=== PATIENT | male | born 1990 | race Caucasian/White ===

== ENCOUNTER 2021-02-05 07:11 | Emergency (ER) | payer BC, SELFPAY ==
[2021-02-05 07:21] VITALS: BP 159/115; PULSE 108; RESP 18; TEMP 36.8; O2SAT 98; BMI 38.2
--- NOTE | 2021-02-05 07:41 | ED_ITS ---
HPI - Abdominal Pain General: Chief Complaint: Abdominal Pain Stated Complaint: N/V, flank pain, poss kidney stone Time Seen by Provider: 02/05/21 07:12 Source: patient Mode of arrival: ambulatory Limitations: no limitations History of Present Illness: HPI narrative: Patient is a nice 30-year-old male who presents to ED today with a complaint of left-sided back pain wrapping ar ound to his abdomen that began fairly abruptly this morning. Patient tells me he does have a history of kidney stones and feels like his discomfort is similar to stones he has had previously. He is not complaining of dysuria, frequency/urgency, or hematuria. He feels slightly nauseous but has not had any episodes of emesis. No injury or trauma to his back. No radicular symptoms. No fever/chills. MD elicited complaint: abdominal pain Pertinent past history: kidney stones Onset (ago): hour(s) Pain Consistency: constant Location: LLQ Severity: moderate Pain scale (0-10): 7 Quality: sharp Exacerbating factors: nothing Relieving factors: nothing Associated Symptoms: Reports nausea; Denies change in bowel habits, change in stool character, chills, diarrhea, dysuria, fever(s) and vomiting Review of Systems Const: Denies: fever(s), chills, body aches, fatigue or malaise Card: Denies: chest pain Resp: Denies: dyspnea GI: Reports: abdominal pain and nausea; Denies: vomiting, diarrhea, change in bowel habits or change in stool character : Reports: flank pain (started this AM with flank pain; now wrapping around to LLQ); Denies: difficulty urinating, dysuria, urinary frequency, urinary urgency or urinary hesitancy Musc: Reports: back pain (L low back wrapping around to abdomen); Denies: neck pain, extremity pain, extremity swelling, joint pain or joint swelling Physical Exam Const: COMMON NORMALS: no acute distress, patient oriented x3, no limitations and alert NUTRITIONAL APPEARANCE: obese ORIENTATION/CONSCIOUSNESS: Yes awake, Yes oriented to person, Yes oriented to place and Yes oriented to time HENMT: COMMON NORMALS: normocephalic and atraumatic HEAD & SCALP: normocephalic and atraumatic Resp: COMMON NORMALS: normal respiratory effort and clear to auscultation bilaterally AUSCULTATION: clear to auscultation bilaterally Cardio: COMMON NORMALS: regular rhythm RATE: tachycardic (mild) RHYTHM: regular rhythm GI: COMMON NORMALS: Normal to inspection, nondistended, normoactive bowel sounds present, Soft to palpation, No hepatosplenomegaly present and no masses PALPATION: Yes Soft to palpation, Yes Tenderness to palpation present (GI) (L lateral abdomen and into LLQ) and Yes No hepatosplenomegaly present OTHER: patient states pain began this AM with flank pain (no CVA tenderness now) and moved down into L lower back and now wrapping around into L side of abdomen : COMMON NORMALS: Yes no CVA tenderness BLADDER/KIDNEY EXAM: Yes no CVA tenderness Back/Pelvis: COMMON NORMALS: no CVA tenderness, thoracic and lumbar spine normal to inspection, no thoracic nor lumbar tenderness, thoraco-lumbar ROM normal and straight leg raise negative bilaterally PELVIS: Yes buttocks normal Neuro: COMMON NORMALS: patient oriented x3 SENSORIUM/ORIENTATION: Yes alert, Yes oriented to person, Yes oriented to place and Yes oriented to time Skin: COMMON NORMALS: no rashes or lesions noted GENERAL SKIN EXAM: no rashes or lesions noted Course Vital Signs: Vital signs: Vital Signs Temperature 98.3 F 02/05/21 07:21 Pulse Rate 113 H 02/05/21 08:19 Respiratory Rate 18 02/05/21 07:21 Blood Pressure 148/97 02/05/21 08:19 Pulse Oximetry 98 02/05/21 08:19 MDM - Abdominal Pain MDM Narrative: Medical decision making narrative: Patient found to have a 4.6 mm left distal ureter/UPJ calculus. Pain was easily controlled here. UA shows no infection. We will send him home with pain meds/nausea meds/Flomax and a urine strainer and have him follow-up with urology. Return to ED precautions given. Lab Data: Labs: Lab Results 02/05/21 02/05/21 02/05/21 08:05 08:12 08:12 WBC 11.6 10^3/uL H 10 ^3/uL (4.0-10.0) RBC 5.62 10^6/uL H 10 ^6/uL (4.1-5.3) Hgb 16.1 g/dL g/dL (11.7-16.6) Hct 50.7 % % (42.0-52.0) MCV 90.2 fl fl (80-94) MCH 28.6 pg pg (28.0-34.0) MCHC 31.8 g/dL g/dL (30.0-36.0) RDW 12.3 % % (12.1-15.1) Plt Count 396 10^3/cmm 10^3 /cmm (130-400) MPV 9.3 fL fL (7.4-10.4) Neut % (Auto) 78.0 % % Lymph % (Auto) 13.2 % % Crockett % (Auto) 7.1 % % Eos % (Auto) 0.2 % % Baso % (Auto) 0.6 % % Neut # (Auto) 9.02 10^3/uL H 10 ^3/uL (1.8-7.7) Lymph # (Auto) 1.5 10^3/uL 10^3/ uL (0.8-4.8) Crockett # (Auto) 0.8 10^3/uL 10^3/ uL (0.2-0.9) Eos # (Auto) 0.0 10^3/uL 10^3/ uL (0.0-0.8) Baso # (Auto) 0.1 10^3/uL 10^3/ uL (0.0-0.1) Nucleated RBC % (a uto) 0 % % Nucleated RBCs # 0.0 /100WBC /100W BC Sodium 136 mmol/L mmol/L (136-145) Potassium 4.2 mmol/L mmol/L (3.5-5.1) Chloride 104 mmol/L mmol/L (98-107) Carbon Dioxide 22 mmol/L mmol/L (22-29) Anion Gap 14.2 (5-19) BUN 12 mg/dL mg/dL (6-20) Creatinine 0.8 mg/dL mg/dL (0.7-1.2) GFR Calculation 114.3 mL/min mL/m in (90-130) Glucose 115 mg/dL mg/dL (65-115) Calculated Osmolal ity 283 mOsm/kg L mOs m/kg (285-295) Calcium 9.7 mg/dL mg/dL (8.5-10.5) Total Bilirubin 0.5 mg/dL mg/dL (0.15-1.2) AST 37 U/L U/L (0-40) ALT 84 U/L H U/L (0-41) Alkaline Phosphata se 99 IU/L IU/L (40-130) Total Protein 7.8 g/dL g/dL (6.6-8.7) Albumin 4.3 g/dL g/dL (3.5-5.2) Globulin 3.5 g/dL g/dL (1.3-4.6) Urine Color Brown (Yellow) Urine Appearance Cloudy (CLEAR) Urine pH 5 (5-7) Ur Specific Gravit y 1.025 (1.005-1.030) Urine Protein 1+ H (Negative) Urine Glucose (UA) Norm (Normal) Urine Ketones Negative (Negative) Urine Blood 3+ H (Negative) Urine Nitrate Negative (Negative) Urine Bilirubin 1+ H (Negative) Urine Urobilinogen Norm mg/dL mg/dL (Negative) Ur Leukocyte Purvi ase Negative (Negative) Urine RBC >100 /hpf H /hpf (0-2) Urine WBC None /hpf /hpf (0-5) Ur Squamous Epith Cells 0-4 /hpf H /hpf (0-5) Amorphous Sediment Not Reportable Urine Bacteria Trace /hpf /hpf (NONE) Imaging Data ^: CT Abd/Pel: Radiologist's impression: [address] [address] [address] Scan Report Signed Patient: Indio Bolden Unit #: [id number] : 1990 Age/Sex: 30 / M ADM Date: 02/05/21 Loc: ER Room/Bed: Attending Dr: Ordering Provider/Ordering MD: Leelee Mueller Date of Service: 02/05/21 Procedure(s): CT kidney stone 03228 Accession Number(s): [id number] Report Number: [id number] WS: [id number] CT ABDOMEN AND PELVIS NONCONTRAST HISTORY: L flank/abdominal pain; hx of stones TECHNIQUE: Imaging performed through the abdomen and pelvis. Coronal and sagittal reformats are submitted. All CT scans at [facility] use at least one of these dose optimization t echniques: automated exposure control; mA and/or kV adjustment per patient size (includes targeted exams where dose is matched to clinical indication); or iterative reconstruction. DLP: 2359.08 mGy.cm COMPARISON: None available. Lower thorax: Lung bases are clear. Visualized heart is normal. No hiatal hernia. Liver: Liver is normal size. Diffuse low attenuation throughout the liver from hepatic steatosis. Areas of sparing adjacent to the gallbladder. Gallbladder: Normal gallbladder. Pancreas: Normal size and attenuation. Normal pancreatic duct. No pancreatitis or mass. Spleen: Normal. Adrenal glands: Normal. No mass. Right kidney: Normal size RIGHT kidney. No perinephric stranding. There are 2 calcifications in the RIGHT renal pelvis which are nonobstructing. These calcifications measure 2 mm. Left kidney: Very minimal perinephric stranding as compared to the RIGHT kidney. Very slight dilatation of the LEFT renal pelvis. 4.6 mm calcification at the LEFT UP junction. The distal ureter is normal size. There are few additional nonobstructing very tiny calcifications in the renal pelvis. Aorta: Normal abdominal aorta, no aneurysm or atherosclerosis. No free fluid, intraperitoneal air or significant lymphadenopathy. GI tract: Normal appendix. No GI tract obstruction or diverticulosis. Abdominal wall: Negative. No hernia. Pelvis: Minimally distended urinary bladder. No free fluid in the pelvis. There are several small phleboliths in the pelvis. No adenopathy. Osseous structures: Mild disc space narrowing and vertebral body osteophytes at L5-S1. CT/CT kidney stone [id number] IMPRESSION: 1. Mild LEFT hydronephrosis secondary to 4.6 mm calcification at the UPJ. 2. Additional very tiny nonobstructing renal calcifications bilaterally. 3. Normal appendix. Dictated By: Dipti Ramsey DO Signed By: Dipti Ramsey DO Signed Date/Time: 02/05/21835 DD/ 8 Discharge Plan Discharge Patient Disposition: Home Clinical Impression: Calculus of distal left ureter Condition: Stable Prescriptions: New hydrocodone-acetaminophen 5-325 mg tablet 1 tab PO Q4H PRN (Reason: pain) Qty: 20 RF: 0 Zofran 4 mg tablet 4 mg PO Q6H PRN (Reason: nausea and vomiting) Qty: 14 RF: 0 Flomax 0.4 mg capsule 0.4 mg PO DAILY Qty: 10 RF: 0 Discharge Orders: Discharge ED (Routine); Ordered 02/05/21 Ordered By: Leelee Mueller Referrals: Basim Foley MD [Physician] - Patient Instructions: Kidney Stones (ED), Opioid Safety Activity Restrictions/Additional Instructions: [facility] is committed to fighting the nationwide opiate epidemic. We are providing ALL patients with information regarding opiate safety. If you received opiate pain medication during your stay or if you received a prescription for opiate pain medication-please review this handout. If not, you may disregard. Thank you. You may use pain/nausea medications as needed. Strain your urine as instructed and bring stone with you to follow-up urology appointment if you pass it. Case management should contact you shortly to set you up with this follow-up appointment. You need to return to the emergency department for worsening or uncontrollable pain, repetitive episodes of vomiting, fevers greater than 100.4, inability to urinate, or any other concerns you may have. I hope you begin to feel better soon. Coding Level of Care Code ED Record Producer for [facility] Exam Comprehensive
--- NOTE | 2021-02-05 08:01 | CT_ITS ---
WS: [id number] CT ABDOMEN AND PELVIS NONCONTRAST HISTORY: L flank/abdominal pain; hx of stones TECHNIQUE: Imaging performed through the abdomen and pelvis. Coronal and sagittal reformats are submi tted. All CT scans at [facility] use at least one of these dose optimization techniques: auto mated exposure control; mA and/or kV adjustment per patient size (includes targeted exams where dose is matched to clinical indication); or iterative reconstruction. DLP: 2359.08 mGy.cm COMPARISON: None available. Lower thorax: Lung bases are clear. Visualized heart is normal. No hiatal hernia. Liver: Liver is normal size. Diffuse low attenuation throughout the liver from hepatic steatosis. Are as of sparing adjacent to the gallbladder. Gallbladder: Normal gallbladder. Pancreas: Normal size and attenuation. Normal pancreatic duct. No pancreatitis or mass. Spleen: Normal. Adrenal glands: Normal. No mass. Right kidney: Normal size RIGHT kidney. No perinephric stranding. There are 2 calcifications in the R IGHT renal pelvis which are nonobstructing. These calcifications measure 2 mm. Left kidney: Very minimal perinephric stranding as compared to the RIGHT kidney. Very slight dilatati on of the LEFT renal pelvis. 4.6 mm calcification at the LEFT UP junction. The distal ureter is jeanie l size. There are few additional nonobstructing very tiny calcifications in the renal pelvis. Aorta: Normal abdominal aorta, no aneurysm or atherosclerosis. No free fluid, intraperitoneal air or significant lymphadenopathy. GI tract: Normal appendix. No GI tract obstruction or diverticulosis. Abdominal wall: Negative. No hernia. Pelvis: Minimally distended urinary bladder. No free fluid in the pelvis. There are several small phl eboliths in the pelvis. No adenopathy. Osseous structures: Mild disc space narrowing and vertebral body osteophytes at L5-S1. CT/CT kidney stone [id number] IMPRESSION: 1. Mild LEFT hydronephrosis secondary to 4.6 mm calcification at the UPJ. 2. Additional very tiny nonobstructing renal calcifications bilaterally. 3. Normal appendix.
[2021-02-05] MEDS: morphine 4 mg/mL SDV 1 mL IVP (08:11)
[2021-02-05] MEDS: ondansetron 2 mg/ML SDV 2 mL 4 MG IVP (08:11)
[2021-02-05] MEDS: sodium chloride 0.9% 1,000 ML 999 ML IV (08:12)
[2021-02-05 08:19] VITALS: BP 148/97; PULSE 113; O2SAT 98
[2021-02-05 08:36] LABS: Basophils # 0.1 10^3/uL (0.0-0.1); Basophils % 0.6 %; Eosinophils % 0.2 %; Hematocrit 50.7 % (42.0-52.0); Hemoglobin 16.1 g/dL (11.7-16.6); Lymphocytes # 1.5 10^3/uL (0.8-4.8); Lymphocytes % 13.2 %; Mean Corpuscular HGB Conc 31.8 g/dL (30.0-36.0); Mean Corpuscular Hemoglobin 28.6 pg (28.0-34.0); Mean Corpuscular Volume 90.2 fl (80-94); Mean Platelet Volume 9.3 fL (7.4-10.4); Monocytes # 0.8 10^3/uL (0.2-0.9); Monocytes % 7.1 %; Neutrophils # 9.02 10^3/uL (1.8-7.7); Nucleated Red Blood Cells % 0 %; Platelet Count 396 10^3/cmm (130-400); Red Blood Count 5.62 10^6/uL (4.1-5.3); Red Cell Distribution Width 12.3 % (12.1-15.1); White Blood Count 11.6 10^3/uL (4.0-10.0)
[2021-02-05 08:51] LABS: Alanine Aminotransferase 84 U/L (0-41); Albumin Level 4.3 g/dL (3.5-5.2); Alkaline Phosphatase 99 IU/L (40-130); Anion Gap 14.2 (5-19); Aspartate Amino Transferase 37 U/L (0-40); Blood Urea Nitrogen 12 mg/dL (6-20); Calcium 9.7 mg/dL (8.5-10.5); Carbon Dioxide 22 mmol/L (22-29); Chloride 104 mmol/L (98-107); Globulin 3.5 g/dL (1.3-4.6); Glomerular Filtration Rate 114.3 mL/min (90-130); Glucose 115 mg/dL (65-115); Osmolality Calculated 283 mOsm/kg (285-295); Potassium 4.2 mmol/L (3.5-5.1); Sodium 136 mmol/L (136-145); Total Bilirubin 0.5 mg/dL (0.15-1.2); Total Protein 7.8 g/dL (6.6-8.7)
[2021-02-05] MEDS: ketorolac 30 mg/mL INJ IVP (09:02)
[2021-02-05 09:08] LABS: Add Urine Culture? Yes; Add Urine Microscopic? YES; Bacteria Urine TRACE /hpf; Bilirubin Urine 1+ (Negative); Blood Urine 3+ (Negative); Glucose Urine UA Norm (Normal); Ketones Urine Negative (Negative); Leukocyte Esterase Urine Negative (Negative); Nitrate Urine Negative (Negative); Protein Urine 1+ (Negative); RBC Urine >100 /hpf (0-2); Specific Gravity, Urine 1.025 (1.005-1.030); Squamous Epithelial Cell Urine 0-4 /hpf (0-5); Urine Appearance Cloudy (CLEAR); Urine Color Brown (Yellow); Urobilinogen Urine Norm (Negative); pH Urine 5 (5-7)
[2021-02-05 09:24] VITALS: BP 124/72; PULSE 117; O2SAT 98
--- NOTE | 2021-02-10 10:47 | DCPLANNER ---
scheduling manager had message to schedule a follow up appointment for patient with Dr. Foley. scheduling manager called the office of Dr. Foley, spoke with Josemanuel, gave clinic patients information. scheduling manager was told that patients information would be printed and reviewed. Clinic will call patient with appointment information.
--- NOTE | 2021-02-14 13:49 | DCPLANNER ---
Patient had an appointment scheduled for 02.11.[address] Foley - patient did attend appointment.
== END 2021-02-05 09:26 | disposition home or self-care (01) ==
PROVIDERS: Emergency Provider Physician Assistant
DX: N20.1 Calculus of ureter (principal)
CPT/HCPCS: 36415; 74176; 80053; 81001; 85025; 87086; 96361; 96374; 96375; 99284; J1885; J2270; J2405; J7030

== ENCOUNTER 2021-02-11 13:50 | Outpatient (CLI) | payer BC, SELFPAY ==
--- NOTE | 2021-02-11 13:59 | XR_ITS ---
WS: [email or web address] KUB, AP view, 02/11/2021 Clinical Data: calculus of distal ureter Comparison: CT abdomen and pelvis, 02/05/2021 Findings: No abnormal intraabdominal masses are seen. There is no dilatated small bowel or evidence of obstruct ion. There is a calcification to the left of the L3 vertebral body which may represent the proximal left u reteral calculus. Fecal material obscures detail over the right kidney. There is a phlebolith of the right side of the true pelvis. XR/XR KUB [id number] Impression: Probable left UPJ calculus.
== END 2021-02-11 13:51 | disposition home or self-care (01) ==
PROVIDERS: PCP Urology; Visit Provider Urology
DX: N20.1 Calculus of ureter (principal)
CPT/HCPCS: 74018; 81003

== ENCOUNTER 2021-02-26 15:04 | Outpatient (CLI) | payer BC, SELFPAY ==
--- NOTE | 2021-02-26 15:12 | XR_ITS ---
WS: [email or web address] KUB, AP view, 02/26/2021 Clinical Data: ureteral calculus Comparison: KUB, 02/11/2021. Findings: No abnormal intraabdominal masses or calcifications are seen. There is no dilatated small bowel or ev idence of obstruction. The proximal left ureteral calculus seen on the prior study is not noted. There is a phlebolith on th e right side of the true pelvis. XR/XR KUB 01626 Impression: Negative KUB.
== END 2021-02-26 15:05 | disposition home or self-care (01) ==
LOC: RAD 15:06
PROVIDERS: PCP Urology; Visit Provider Urology
DX: N20.1 Calculus of ureter (principal)
CPT/HCPCS: 74018; 81003

== ENCOUNTER 2021-03-12 15:08 | Outpatient (CLI) | payer BC, SELFPAY ==
--- NOTE | 2021-03-12 15:00 | XR_ITS ---
WS: [email or web address] Exam: XR KUB [id number] Date/Time of Exam: 03/12/2021 3:34 PM Reason For Exam: URETERAL CALCULUS No bowel obstruction or free air. Tiny solitary 2 mm calcification superimpose both kidneys and may b e tiny renal stones. No sign of organ enlargement. Bony structures are intact. XR/XR KUB [id number] IMPRESSION: 1. No acute abdominal finding. 2. Solitary punctate calcifications superimpose both kidneys and may represent renal calculi.
== END 2021-03-12 15:09 | disposition home or self-care (01) ==
PROVIDERS: PCP Urology; Visit Provider Urology
DX: N20.2 Calculus of kidney with calculus of ureter (principal)
CPT/HCPCS: 74018; 81003

== ENCOUNTER 2021-04-01 15:05 | Outpatient (CLI) | payer BC, SELFPAY ==
--- NOTE | 2021-04-01 15:00 | XR_ITS ---
WS: [email or web address] Exam: XR KUB [id number] Date/Time of Exam: 04/01/2021 3:20 PM Reason For Exam: left ureteral calculus Comparison 03/12/2021. No bowel obstruction or free air. No sign of organ enlargement. Questionable 3 mm calcification super imposes the region of the right kidney. This could represent artifact or small renal stone. Regional bony elements are intact. A 3 x 1 mm rectangular calcification seen in the left pelvis might represen t a urinary tract stone. This was not present on the previous study. XR/XR KUB [id number] IMPRESSION: 1. No acute abdominal finding. 2. 3 x 1 mm rectangular calcification seen in the left pelvis could represent a urinary tract stone. This was not present on the prior study. 3. Questionable 3 mm calcification in the region of the right kidney. This coul d be a renal stone or artifact.
== END 2021-04-01 15:06 | disposition home or self-care (01) ==
LOC: RAD 15:09
PROVIDERS: PCP Urology; Visit Provider Urology
DX: N20.1 Calculus of ureter (principal)
CPT/HCPCS: 74018; 81003

== ENCOUNTER → 2021-05-13 16:24 | Outpatient (BNVA) | payer BC, SELFPAY | PROVIDERS: PCP Urology; Visit Provider Urology | DX: N20.1 Calculus of ureter (principal) | CPT/HCPCS: 82365; 88300 ==

== ENCOUNTER 2021-06-17 07:17 | Outpatient (CLI) | payer BC, SELFPAY ==
--- NOTE | 2021-06-17 02:22 | XR_ITS ---
WS: [email or web address] Exam: XR KUB [id number] Date/Time of Exam: 06/17/2021 7:27 AM Reason For Exam: CALCULUS OF URETER Comparison 04/01/2021. No bowel obstruction or free air. 3 mm calcification projected over the right kidney and may represen t a renal stone. No sign of organ enlargement. Regional bony elements are intact. XR/XR KUB [id number] IMPRESSION: 1. No acute abdominal process. 2. 3 mm calcification superimposes the right kidney that may represent a renal stone.
== END 2021-06-17 07:18 | disposition home or self-care (01) ==
LOC: RAD 07:19
PROVIDERS: PCP Urology; Visit Provider Urology
DX: N20.1 Calculus of ureter (principal)
CPT/HCPCS: 74018; 81003

== ENCOUNTER 2021-09-02 07:31 | Emergency (ER) | payer BC, SELFPAY ==
--- NOTE | 2021-09-02 07:42 | XR_ITS ---
WS: [email or web address] XR KUB [id number] REASON FOR EXAM: nephrolithiasis FINDINGS: Presumed calculus previously identified overlying right kidney on examination of 06/17/2021 is not abelardo ntifiable. No other urinary tract calculi are identified. Unremarkable bowel gas pattern. No free air or retroperitoneal air. XR/XR KUB [id number] IMPRESSION: No urinary tract calculi identified. No other significant abnormality.
[2021-09-02 08:10] VITALS: RESP 17
[2021-09-02] MEDS: morphine 4 mg/mL SDV 1 mL 6 MG IVP (08:10)
[2021-09-02] MEDS: ondansetron 2 mg/ML SDV 2 mL 4 MG IVP (08:10)
[2021-09-02] MEDS: lactated ringers 1,000 ML 999 ML IV (08:10)
[2021-09-02 08:19] VITALS: BP 164/100; PULSE 91; RESP 18; TEMP 36.8; O2SAT 98; BMI 38.2
[2021-09-02 08:19] LABS: Basophils # 0.1 10^3/uL (0.0-0.1); Basophils % 0.6 %; Eosinophils # 0.1 10^3/uL (0.0-0.8); Eosinophils % 0.7 %; Hematocrit 49.2 % (42.0-52.0); Hemoglobin 15.8 g/dL (11.7-16.6); Lymphocytes # 1.6 10^3/uL (0.8-4.8); Lymphocytes % 15.8 %; Mean Corpuscular HGB Conc 32.1 g/dL (30.0-36.0); Mean Corpuscular Hemoglobin 28.8 pg (28.0-34.0); Mean Corpuscular Volume 89.6 fl (80-94); Mean Platelet Volume 8.9 fL (7.4-10.4); Monocytes # 0.6 10^3/uL (0.2-0.9); Neutrophils # 7.47 10^3/uL (1.8-7.7); Neutrophils % 75.9 %; Nucleated Red Blood Cells % 0 %; Platelet Count 389 10^3/cmm (130-400); Red Blood Count 5.49 10^6/uL (4.1-5.3); Red Cell Distribution Width 12.1 % (12.1-15.1); White Blood Count 9.8 10^3/uL (4.0-10.0)
[2021-09-02 08:27] LABS: Add Urine Microscopic? YES; Bilirubin Urine Neg (Negative); Blood Urine 3+ (Negative); Glucose Urine UA Norm (Normal); Ketones Urine Negative (Negative); Leukocyte Esterase Urine Negative (Negative); Nitrate Urine Negative (Negative); Protein Urine 1+ (Negative); Specific Gravity, Urine 1.025 (1.005-1.030); Urine Appearance Hazy (CLEAR); Urine Color Yellow (Yellow); Urobilinogen Urine Norm (Negative); pH Urine 5 (5-7)
[2021-09-02 08:28] LABS: RBC Urine >100 /hpf (0-2)
[2021-09-02 08:29] LABS: Amorphous Sediment Urine 1+ /hpf; Bacteria Urine 1+ /hpf; Mucus Urine 1+ /hpf; Squamous Epithelial Cell Urine 0-4 /hpf (0-5); WBC Urine 0-4 /hpf (0-5)
[2021-09-02 08:30] LABS: Add Urine Culture? Yes
--- NOTE | 2021-09-02 08:34 | CT_ITS ---
WS: [email or web address] CT ABDOMEN AND PELVIS NONCONTRAST HISTORY: flank pain TECHNIQUE: Imaging performed through the abdomen and pelvis. Coronal and sagittal reformats are submi tted. All CT scans at [facility] use at least one of these dose optimization techniques: auto mated exposure control; mA and/or kV adjustment per patient size (includes targeted exams where dose is matched to clinical indication); or iterative reconstruction. DLP: 2162.16 mGy.cm COMPARISON: 02/05/2021 Lower thorax: Lung bases are clear. Visualized heart is normal. No hiatal hernia. Liver: Liver is top normal size. There is diffuse hepatic steatosis. No mass or bile duct dilatation identified. Gallbladder: Normal gallbladder. Pancreas: Normal size and attenuation. Normal pancreatic duct. No pancreatitis or mass. Spleen: Normal. Adrenal glands: Normal. No mass. Right kidney: Mildly enlarged edematous RIGHT kidney. Mild RIGHT hydroureteronephrosis. 4 mm calcific ation at the UV junction. There is an additional nonobstructing 3 mm calcification in the lower pole. Left kidney: Very tiny scattered 2 to 3 mm calcifications in the renal pelvis with no obstruction. Aorta: Normal abdominal aorta, no aneurysm or atherosclerosis. No free fluid, intraperitoneal air or significant lymphadenopathy. GI tract: Stomach is markedly distended with fluid. No small bowel obstruction. The appendix is jeanie l. Numerous diverticula throughout the colon. No diverticulitis or obstruction. Abdominal wall: Negative. No hernia. Pelvis: No free fluid or adenopathy. 4 mm calcification noted in the RIGHT posterior urinary bladder near the UV junction. Osseous structures: 0 CT/CT kidney stone [id number] IMPRESSION: 1. Mild RIGHT hydroureteronephrosis secondary to 4 mm calcification at the UV junction. 2. Additional bilateral nonobstructing nephrolithiasis. 3. Normal appendix. 4. Hepatic steatosis.
[2021-09-02 08:36] LABS: Anion Gap 16.2 (5-19); Blood Urea Nitrogen 17 mg/dL (6-20); Calcium 9.5 mg/dL (8.5-10.5); Carbon Dioxide 24 mmol/L (22-29); Chloride 101 mmol/L (98-107); Glomerular Filtration Rate 99.8 mL/min (90-130); Glucose 130 mg/dL (65-115); Osmolality Calculated 287 mOsm/kg (285-295); Potassium 4.2 mmol/L (3.5-5.1); Sodium 137 mmol/L (136-145)
--- NOTE | 2021-09-02 08:36 | W.ED.MALEGU ---
HPI - Male Genitourinary General: Chief complaint: Urogenital-Male Stated complaint: r flank pain Time Seen by Provider: 09/02/21 07:34 Source: patient Mode of arrival: ambulatory Limitations: no limitations History of Present Illness: 30-year-old male who presents to the emergency room with complaint of right flank pain. He has a history of previous nephrolithiasis. Began overnight he took a hydrocodone earlier this morning about 3 to 4 hours ago he had moderate relief of pain since then. He has noticed some very mild hematuria. He has not had any fever sweats or chills when he arrived here he was a little bit diaphoretic but afebrile is mostly due to pain he was given pain medication shortly after arrival and that has improved things. He denies any dysuria urgency or frequency or any other abdominal pain. Duration: constant and progressively worsening Severity: severe Quality: sharp Relieving factors: medication Exacerbating factors: none Context: other (History of nephrolithiasis) Associated symptoms: Reports hematuria and nausea; Deny discharge, dysuria, fevers/chills, rash, swelling, urinary incontinence, urinary retention, mass or vomiting Review of Systems Const: Denies: fever(s), chills, body aches, change in appetite, fatigue or malaise ENMT: Denies: throat pain, ear or mastoid pain, nasal discharge or nasal congestion Card: Denies: chest pain, edema, dyspnea on exertion or orthopnea Resp: Denies: dyspnea, productive cough or non-productive cough GI: Reports: nausea; Denies: vomiting : Reports: flank pain and hematuria; Denies: difficulty urinating, dysuria, urinary frequency, urinary urgency or urinary incontinence Skin/Breast: Denies: rash or pruritus PFSH ED PFSH: Medical History Bilateral renal stones Left ureteral calculus 5 mm left distal ureteral stone diagnosed January 2021. Family History Father Diabetes Mother Diabetes Social History Smoking and tobacco status: never smoked Alcohol intake: current Alcohol intake frequency: holidays/special occasions only Marital status: Single Current occupational status: employed History of recent travel: No Physical Exam Const: GENERAL APPEARANCE: cooperative and comfortable ORIENTATION/CONSCIOUSNESS: Yes awake, Yes oriented to person, Yes oriented to place and Yes oriented to time HENMT: COMMON NORMALS: normocephalic, atraumatic and hearing grossly normal bilaterally HEAD & SCALP: normocephalic and atraumatic Neck/C-Spine: COMMON NORMALS: no JVD Resp: COMMON NORMALS: normal respiratory effort, No retractions, No use of accessory muscles and clear to auscultation bilaterally AUSCULTATION: clear to auscultation bilaterally Cardio: COMMON NORMALS: no JVD, regular rate, regular rhythm and No murmurs present (Cardio) RATE: regular rate RHYTHM: regular rhythm GI: COMMON NORMALS: Soft to palpation and No hepatosplenomegaly present AUSCULTATION: Yes normoactive bowel sounds PALPATION: Yes Soft to palpation, No Tenderness to palpation present (GI), No Guarding due to palpation present (GI) and Yes No hepatosplenomegaly present : BLADDER/KIDNEY EXAM: Yes CVA tenderness Back/Pelvis: GENERAL BACK: Yes CVA tenderness CVA tenderness: right Extremity: COMMON NORMALS: normal to inspection, capillary refill normal, no clubbing, cyanosis or edema, no calf tenderness and no pedal edema Neuro: SENSORIUM/ORIENTATION: Yes oriented to person, Yes oriented to place and Yes oriented to time Skin: COMMON NORMALS: no rashes or lesions noted GENERAL SKIN EXAM: no rashes or lesions noted Course Vital Signs: Vital signs: Vital Signs Temperature 98.2 F 09/02/21 08:19 Pulse Rate 88 09/02/21 08:58 Respiratory Rate 17 09/02/21 08:58 Blood Pressure 158/98 09/02/21 08:58 Pulse Oximetry 100 09/02/21 08:58 MDM - Male Medical Decision Making 4 mm right UVJ stone. Anticipate will pass pain is under much better control discharge home with pain medications tamsulosin, strain urine follow-up with Dr. Foley, case management to set up. Return if has problems or pain is not controlled Medical Records I reviewed the patient's medical records. Lab Data I reviewed the patient's lab results. : 09/02/21 08:05 09/02/21 08:05 Radiology Impressions KUB X-Ray 09/02/21 07:42 IMPRESSION: No urinary tract calculi identified. No other significant abnormality. Abdomen/Pelvis CT 09/02/21 08:34 IMPRESSION: 1. Mild RIGHT hydroureteronephrosis secondary to 4 mm calcification at the UV junction. 2. Additional bilateral nonobstructing nephrolithiasis. 3. Normal appendix. 4. Hepatic steatosis. Laboratory Results WBC 9.8 10^3/uL (4.0-10.0) 09/02/21 08:05 RBC 5.49 10^6/uL (4.1-5.3) H 09/02/21 08:05 Hgb 15.8 g/dL (11.7-16.6) 09/02/21 08:05 Hct 49.2 % (42.0-52.0) 09/02/21 08:05 MCV 89.6 fl (80-94) 09/02/21 08:05 MCH 28.8 pg (28.0-34.0) 09/02/21 08:05 MCHC 32.1 g/dL (30.0-36.0) 09/02/21 08:05 RDW 12.1 % (12.1-15.1) 09/02/21 08:05 Plt Count 389 10^3/cmm (130-400) 09/02/21 08:05 MPV 8.9 fL (7.4-10.4) 09/02/21 08:05 Neut % (Auto) 75.9 % 09/02/21 08:05 Lymph % (Auto) 15.8 % 09/02/21 08:05 [place] % (Auto) 6.0 % 09/02/21 08:05 Eos % (Auto) 0.7 % 09/02/21 08:05 Baso % (Auto) 0.6 % 09/02/21 08:05 Neut # (Auto) 7.47 10^3/uL (1.8-7.7) 09/02/21 08:05 Lymph # (Auto) 1.6 10^3/uL (0.8-4.8) 09/02/21 08:05 [place] # (Auto) 0.6 10^3/uL (0.2-0.9) 09/02/21 08:05 Eos # (Auto) 0.1 10^3/uL (0.0-0.8) 09/02/21 08:05 Baso # (Auto) 0.1 10^3/uL (0.0-0.1) 09/02/21 08:05 Nucleated RBC % (auto) 0 % 09/02/21 08:05 Nucleated RBCs # 0.0 /100WBC 09/02/21 08:05 Sodium 137 mmol/L (136-145) 09/02/21 08:05 Potassium 4.2 mmol/L (3.5-5.1) 09/02/21 08:05 Chloride 101 mmol/L (98-107) 09/02/21 08:05 Carbon Dioxide 24 mmol/L (22-29) 09/02/21 08:05 Anion Gap 16.2 (5-19) 09/02/21 08:05 BUN 17 mg/dL (6-20) 09/02/21 08:05 Creatinine 0.9 mg/dL (0.7-1.2) 09/02/21 08:05 GFR Calculation 99.8 mL/min (90-130) 09/02/21 08:05 Glucose 130 mg/dL (65-115) H 09/02/21 08:05 Calculated Osmolality 287 mOsm/kg (285-295) 09/02/21 08:05 Calcium 9.5 mg/dL (8.5-10.5) 09/02/21 08:05 Urine Color Yellow (Yellow) 09/02/21 08:05 Urine Appearance Hazy (CLEAR) A 09/02/21 08:05 Urine pH 5 (5-7) 09/02/21 08:05 Ur Specific [place] 1.025 (1.005-1.030) 09/02/21 08:05 Urine Protein 1+ (Negative) H 09/02/21 08:05 Urine Glucose (UA) Norm (Normal) 09/02/21 08:05 Urine Ketones Negative (Negative) 09/02/21 08:05 Urine Blood 3+ (Negative) H 09/02/21 08:05 Urine Nitrate Negative (Negative) 09/02/21 08:05 Urine Bilirubin Neg (Negative) 09/02/21 08:05 Urine Urobilinogen Norm mg/dL (Negative) 09/02/21 08:05 Ur Leukocyte Esterase Negative (Negative) 09/02/21 08:05 Urine RBC >100 /hpf (0-2) H 09/02/21 08:05 Urine WBC 0-4 /hpf (0-5) H 09/02/21 08:05 Ur Squamous Epith Cells 0-4 /hpf (0-5) H 09/02/21 08:05 Amorphous Sediment 1+ /hpf 09/02/21 08:05 Urine Bacteria 1+ /hpf (NONE) H 09/02/21 08:05 Urine Mucus 1+ /hpf 09/02/21 08:05 Discharge Plan Discharge Patient Disposition: Home Clinical Impression: Right nephrolithiasis Condition: Stable Prescriptions: New hydrocodone-acetaminophen 10-325 mg tablet 1 tab PO Q6H PRN (Reason: pain) Qty: 25 0RF Flomax 0.4 mg capsule 0.4 mg PO DAILY Qty: 20 0RF ondansetron HCl 4 mg tablet 4 mg PO Q6H PRN (Reason: nausea and vomiting) Qty: 20 0RF No Action cetirizine [24Hour Allergy] 10 mg tablet 10 mg PO DAILY PRN0RF tamsulosin 0.4 mg capsule 0.4 mg PO DAILY PRN0RF hydrocodone-acetaminophen 5-325 mg tablet 1 tab PO Q4H PRN (Reason: pain) Qty: 20 0RF Zofran 4 mg tablet 4 mg PO Q6H PRN (Reason: nausea and vomiting) Qty: 14 0RF Discharge Orders: Discharge ED (Routine); Ordered 09/02/21 Ordered By: Alfredo Flores Referrals: Basim Foley MD [Primary Care Provider] - Discharge Diet: Usual diet Discharge Activity: Resume usual activity Patient Instructions: Opioid Safety Activity Restrictions/Additional Instructions: advanced manager will make arrangements for you to follow-up with Dr. Foley Coding Level of Care Code ED Online Marketing Analyst for Chg Fwd Exam Comprehensive
[2021-09-02 08:58] VITALS: BP 158/98; PULSE 88; RESP 17; O2SAT 100
--- NOTE | 2021-09-04 16:14 | DCPLANNER ---
Addendum entered by My [facility] 09/19/21 18:05: Appointment was cancelled Addendum entered by [facility] 09/11/21 13:00: Patient has a follow up appointment scheduled for Thursday, September 16, 2021 at 8:30 with Do Brown at urology. Original Note: production quality manager had message to schedule a follow up appointment for patient with urology. production quality manager sent patients information to the front office staff at urology. Patients information will be printed and reviewed. Clinic will call patient with appointment information.
== END 2021-09-02 09:47 | disposition home or self-care (01) ==
PROVIDERS: Emergency Provider Family Medicine; PCP Urology
DX: N13.2 Hydronephrosis with renal and ureteral calculous obstruction (principal); Z79.891 Long term (current) use of opiate analgesic
CPT/HCPCS: 74018; 74176; 80048; 81001; 85025; 87086; 96361; 96374; 96375; 99284; J2270; J2405

== ENCOUNTER 2024-06-29 22:05 | Emergency (ER) | payer BC, SELFPAY ==
[2024-06-29 22:11] VITALS: BP 145/90; PULSE 93; RESP 18; TEMP 36.7; O2SAT 99; BMI 36.3
--- NOTE | 2024-06-29 22:24 | W.ED.DIZZY ---
HPI - Dizziness General: Chief Complaint: Dizziness Stated Complaint: Dizzy,wabbaly when walking Time Seen by Provider: 06/29/24 22:19 Source: patient and family Mode of arrival: ambulatory Limitations: no limitations History of Present Illness: HPI Narrative: Patient is a 33-year-old male with his mother and father for evaluation of dizziness. Patient states he was laying in bed this evening when he rolled over onto his left side and immediately became dizzy. He feels like dizziness is worse with movement of his head. He was ambulatory back to his room here. He has no other neurologic complaints. MD elicited complaint: dizziness Onset (ago): hour(s) Timing: sudden onset Severity: moderate Context: change in body position History of similar symptoms: No Exacerbating factors: change in body position Relieving factors: remaining still and keeping eyes open Associated symptoms: Reports no associated symptoms; Denies chest pain, chills, headache(s), malaise, nausea, palpitations, syncope or vomiting Associated neuro symptoms: Reports no associated symptoms; Deny confusion or numbness in extremities Stroke scale total: 0 Related Data Home Medications ?Medication ?Instructions ?Recorded ?Confirmed cetirizine 10 mg tablet (24Hour 10 mg PO DAILY PRN 02/26/21 06/17/21 Allergy) tamsulosin 0.4 mg capsule 0.4 mg PO DAILY PRN 06/17/21 Previous Rx's ?Medication ?Instructions ?Recorded hydrocodone 5 mg-acetaminophen 325 1 tab PO Q4H PRN pain #20 tabs 02/05/21 mg tablet ondansetron HCl 4 mg tablet 4 mg PO Q6H PRN nausea and 02/05/21 (Zofran) vomiting #14 tabs hydrocodone 10 mg-acetaminophen 1 tab PO Q6H PRN pain #25 tabs 09/02/21 325 mg tablet ondansetron HCl 4 mg tablet 4 mg PO Q6H PRN nausea and 09/02/21 vomiting #20 tabs tamsulosin 0.4 mg capsule (Flomax) 0.4 mg PO DAILY #20 caps 09/02/21 Allergies Allergy/AdvReac Type Severity Reaction Status Date / Time amoxicillin Allergy ALGY-Rash Verified 06/17/21 08:01 Review of Systems Const: Denies: fever(s), chills, body aches, fatigue or malaise Eyes: Denies: change in vision, blurry vision or photophobia Card: Denies: chest pain, palpitations, lightheadedness, syncope or pre-syncope GI: Denies: nausea or vomiting Musc: Denies: neck pain Neuro: Reports: dizziness; Denies: headache(s), numbness in extremities, weakness in extremities, sensory changes, difficulty walking, confusion, Slurred speech present or difficulty communicating thoughts PFS ED PFSH: Medical History Bilateral renal stones Left ureteral calculus 5 mm left distal ureteral stone diagnosed January 2021. Family History Father Diabetes Mother Diabetes Social History Smoking and tobacco/nicotine status: never used tobacco/nicotine Alcohol intake: current Alcohol intake frequency: holidays/special occasions only Marital status: Single Current occupational status: employed Physical Exam Const: COMMON NORMALS: no acute distress, no limitations, alert and well nourished ORIENTATION/CONSCIOUSNESS: Yes awake, Yes oriented to person, Yes oriented to place and Yes oriented to time HENMT: FACE & SINUS: normal facial exam Eye: COMMON NORMALS: Equal, round and reactive pupils present and EOMs intact bilaterally GENERAL EYE: appearance normal, both eyes and all related structures and normal light reflex PUPIL: Yes Equal, round and reactive pupils present DIRECT OPHTHALMOSCOPY: Yes normal light reflex OTHER: nystagmus noted on adry hallpike exam to the R Neck/C-Spine: COMMON NORMALS: full ROM and no lymphadenopathy Resp: COMMON NORMALS: normal respiratory effort and clear to auscultation bilaterally AUSCULTATION: clear to auscultation bilaterally Cardio: COMMON NORMALS: regular rate and regular rhythm RATE: regular rate RHYTHM: regular rhythm Extremity: GENERAL: Yes normal exam except as noted Neuro: VIET COMA SCALE: document GCS findings [place] coma scale eye opening: Spontaneous [place] coma scale verbal response: Orientated [place] coma scale motor response: Obey commands Viet coma scale total score: 15 COMMON NORMALS: CN's II-XII intact bilaterally, moves all extremities, no focal motor deficits and no sensory deficits noted SENSORIUM/ORIENTATION: Yes alert, Yes oriented to person, Yes oriented to place and Yes oriented to time Course Vital Signs: Vital signs: Vital Signs Temperature 98.1 F 06/29/24 22:11 Pulse Rate 93 06/29/24 22:42 Respiratory Rate 18 06/29/24 22:11 Blood Pressure 149/85 06/29/24 22:42 Pulse Oximetry 95 06/29/24 22:42 Oxygen Delivery Me thod Room Air 06/29/24 22:42 MDM - Dizziness Medical Decision Making 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 Patient was given instructions for the Laura maneuver to be performed at home. Discussed usage of meclizine. He can follow-up with primary care in 1 to 2 weeks if symptoms or not improving. Discussed possibility of vestibular rehabilitation. Return ED precautions discussed. Differential Diagnosis Likely benign paroxysmal positional vertigo Medical Records I reviewed the patient's medical records. No radiology studies performed this visit Discharge Plan Discharge Patient Disposition: Home Clinical Impression: Benign paroxysmal positional vertigo Qualifiers: Laterality: right Qualified Code(s): H81.11 - Benign paroxysmal vertigo, right ear Condition: Stable Prescriptions: No Action cetirizine [24Hour Allergy] 10 mg tablet 10 mg PO DAILY PRN tamsulosin 0.4 mg capsule 0.4 mg PO DAILY PRN hydrocodone-acetaminophen 5-325 mg tablet 1 tab PO Q4H PRN (Reason: pain) Qty: 20 0RF Zofran 4 mg tablet 4 mg PO Q6H PRN (Reason: nausea and vomiting) Qty: 14 0RF hydrocodone-acetaminophen 10-325 mg tablet 1 tab PO Q6H PRN (Reason: pain) Qty: 25 0RF Flomax 0.4 mg capsule 0.4 mg PO DAILY Qty: 20 0RF ondansetron HCl 4 mg tablet 4 mg PO Q6H PRN (Reason: nausea and vomiting) Qty: 20 0RF Discharge Orders: Discharge ED (Routine); Ordered 06/29/24 Ordered By: Leelee Mueller Patient Instructions: Benign Paroxysmal Positional Vertigo (ED), Benign Paroxysmal Positional Vertigo (DC) Activity Restrictions/Additional Instructions: As we discussed, you were given instructions for the Laura maneuver. I would like you to do this several times throughout the day over the next few days. You may use the meclizine as we discussed to help with dizziness in the meantime. If symptoms are not improving over the next week or so, please follow-up with your primary care provider. Print Language: [place] Citizen Coding Level of Care Code ED Level Vial Inside Grinder for Levy Mclean
[2024-06-29 22:42] VITALS: BP 149/85; PULSE 93; O2SAT 95
[2024-06-29] MEDS: meclizine 25 mg tablet 50 MG PO (23:10)
== END 2024-06-29 23:18 | disposition home or self-care (01) ==
PROVIDERS: Emergency Provider Physician Assistant
DX: H81.11 Benign paroxysmal vertigo, right ear (principal)
CPT/HCPCS: 99283; J8597